=== PATIENT | female | born 1995 ===

== ENCOUNTER 2018-07-06 09:00 | Outpatient (RCR) | payer BC ==
[2018-07-02 15:00] VITALS: BP 145/96
--- NOTE | 2018-07-02 18:30 | ONCOLOGY CONSULTATION ---
EVENT DATE: July 02, [address] Nye REASON FOR CONSULTATION Evaluation and management of possible hypercoagulable state in a patient planned to be put on oral contraceptive pills. HEMATOLOGY HISTORY Patient is a 22-year-old female who is planned to have maybe estrogenic oral contraceptive pills, and the patient gave a history of blood clotting in her mother who had in the past a DVT and later she developed also pulmonary embolism. Patient has been followed by Dr. 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 She was also found to have high plasminogen activator inhibitor 1 at 38.2 international units/mL and the normal is less than 25. Patient did not have any history of blood clotting in the past. PAST MEDICAL HISTORY Insignificant. PAST SURGICAL HISTORY Tonsillectomy and adenoidectomy as a child. FAMILY HISTORY Mother had venous thromboembolism. SOCIAL HISTORY Patient is single with no children. 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 She drinks occasionally. Denies any abuse of tobacco or illicit drugs. CURRENT MEDICATIONS 1. Nasonex 17 g per day. 2. Claritin D one tablet daily as needed. 3. Jencycla 0.35 mg tablet orally daily. ALLERGIES No known drug allergies. REVIEW OF SYSTEMS CONSTITUTIONAL: No appetite or weight change. No fever, chills or sweating. No recent infection. HEENT: Ears: No tinnitus or hearing problem. Nose: No nasal discharge or epistaxis. Throat: No sore throat or mouth ulcers. Eyes: No diplopia or visual changes. RESPIRATORY: No shortness of breath. No cough, expectoration or hemoptysis. CARDIOVASCULAR: No chest pain, orthopnea, or paroxysmal nocturnal dyspnea (PND). No edema. No palpitations. GASTROINTESTINAL: No nausea or vomiting. No diarrhea or constipation. No change in bowel movements. No heartburn or swallowing difficulties. No abdominal pain. No jaundice. No hematemesis, melena or rectal bleeding. GENITOURINARY: No hematuria or dysuria. MUSCULOSKELETAL: No pain in the muscles, joints or bones. NEUROLOGICAL: No tingling or numbness in the hands or feet. No headaches or convulsions. HEMATOLOGIC/LYMPHATIC: No bleeding or easy bruising. No weakness or fatigue. No enlarged lymph nodes. SKIN: No skin rash or lumps. PSYCHIATRIC: No anxiety or depression. PHYSICAL EXAMINATION GENERAL: Looks stable. Well-developed, well-nourished, and in no acute distress. VITAL SIGNS: Blood pressure 146/96, pulse 113 per minute, respirations 16 per minute, temperature 98.6, pulse ox 95% on room air. HEENT: Head: Atraumatic. No sinus tenderness to palpation. Eyes: No icterus or conjunctivitis. Mouth and Throat: No oral thrush or mucositis. NECK: Supple. No cervical or supraclavicular lymphadenopathy. LUNGS: Clear to auscultation and percussion bilaterally. HEART: Regular rate and rhythm. No gallops, murmurs, clicks or rubs. ABDOMEN: Soft and lax. No tenderness. No hepatosplenomegaly. No masses. EXTREMITIES: No cyanosis, clubbing or edema. LYMPHATICS: No peripheral lymphadenopathy. NEUROLOGICAL: Conscious, alert and oriented times three. No focal motor or sensory deficits. PSYCHIATRIC: Mood and affect appear normal. SKIN: No skin rash, bruise or purpuric eruption. 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 Her mother had a history of venous thromboembolism in the past. Given this information, patient did not have a fasting homocysteine level and I am planning to check the homocysteine level to see if it is high or normal. Regarding the affect of estrogen on plasminogen activator inhibitor, there was a trial done and they found that oral estrogen therapy reduced the statistically significantly plasminogen activator 1 inhibitor level compared with transdermal methods of administration, and this change is beneficial from the view of cardiovascular risk, by decreasing the risk of blood clotting of course. Regarding the affect of estrogen also on homocysteine, they found that homocysteine plasma levels are not affected after three months of oral hormone replacement therapy regardless of the status of the methylenetetrahydrofolate reductase mutation. So it seems that estrogenic compounds may be beneficial in this type of hypercoagulable state. I am planning to check her fasting homocysteine level. I will see her in a week to discuss the result, and the patient will be released to start her contraceptive pills. PLAN 1. Check fasting homocysteine level. 2. Patient to return in one week for further evaluation and management. 3. Patient to contact us for any new concern or complaints. MTDD
[~2018-07-06 09:00] MED LIST: LORA1TAB69 PO; MOMR ENA; NORE0.353 PO
[2018-07-06 09:15] VITALS: BP 139/82
[2018-07-09 16:04] VITALS: BP 149/85
--- NOTE | 2018-07-09 16:19 | EKG ---
FACILITY: [facility] [place] PATIENT NAME: BEA SAMANIEGO : [id number] MR: [id number] V: [id number] EXAM DATE: ORDERING PHYSICIAN: LYNDSEY PRITCHETT TECHNOLOGIST: Test Reason : tachycardia Blood Pressure : / mmHG Vent. Rate : 114 BPM Atrial Rate : 114 BPM P-R Int : 142 ms QRS Dur : 072 ms QT Int : 302 ms P-R-T Axes : 070 079 070 degrees QTc Int : 416 ms Sinus tachycardia Otherwise normal ECG No previous ECGs available Confirmed by YEIMY URIARTE ([id number]) on 07/09/2018 6:58:19 PM Referred By: Confirmed By:YEIMY URIARTE
--- NOTE | 2018-07-09 18:32 | ONCOLOGY FOLLOW UP NOTE ---
EVENT DATE: July 09, 2018 DIAGNOSES 1. Hypercoagulable state without venous thromboembolus. 2. 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 3. High plasminogen activator inhibitor 1 at 38.2. CHIEF COMPLAINT The patient is here today for followup of her hypercoagulable state. HEMATOLOGY HISTORY Patient is a 22-year-old female who is planned to have maybe estrogenic oral contraceptive pills, and the patient gave a history of blood clotting in her mother who had in the past a DVT and later she developed also pulmonary embolism. Patient has been followed by Dr. 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 She was also found to have high plasminogen activator inhibitor 1 at 38.2 international units/mL and the normal is less than 25. Patient did not have any history of blood clotting in the past. Homocysteine level came back normal at 9. PAST MEDICAL HISTORY Insignificant. PAST SURGICAL HISTORY Tonsillectomy and adenoidectomy as a child. FAMILY HISTORY Mother had venous thromboembolism. SOCIAL HISTORY Patient is single with no children. 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 Denies any abuse of tobacco or illicit drugs. CURRENT MEDICATIONS 1. Nasonex 17 g per day. 2. Claritin D one tablet daily as needed. 3. Jencycla 0.35 mg tablet orally daily. ALLERGIES No known drug allergies. REVIEW OF SYSTEMS Deferred. PHYSICAL EXAMINATION Deferred. DIAGNOSTIC DATA Fasting homocysteine level is normal at 9. ASSESSMENT 1. 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 Her mother had venous thromboembolism in the past and she has protein S deficiency. Estrogen actually has a beneficial affect on plasminogen activator inhibitor 1. There was a trial done and they found that the estrogen therapy reduced statistically significantly plasminogen activator 1 inhibitor level compared with the transdermal methods of administration and this change is beneficial from the view of cardiovascular risk by decreasing the risk of blood clotting. Her homocysteine level currently is normal and the estrogen does not affect the level of the homocysteine level after three months of oral hormone replacement therapy regardless of the status of the methylenetetrahydrofolate reductase mutation. For this reason, estrogenic compounds I do not see any draw back effects on her hypercoagulable state with methylenetetrahydrofolate reductase mutation and high plasminogen activator inhibitor 1. But the patient is aware that estrogen by itself can increase the risk of thromboembolism by about 4-5 fold, even without hypercoagulable state. I handed her a brochure of the trials which I talked about regarding the effect of estrogen on the plasminogen activator inhibitor 1 and the homocysteine level, for the patient to give to her dining services manager to decide about her contraceptive method. 2. Sinus tachycardia. Patient when she came to the office she had tachycardia and EKG showed sinus tachycardia at 114 heart beats per minute, and on asking the patient, she is taking Claritin on a daily basis, and the Claritin can raise the heart in less than 2%, most probably due to its anticholinergic effect. Patient was advised to see her primary care for that. PLAN 1. Patient to return on a p.r.n. basis. 2. I do not see increasing the risk of thrombosis by adding oral contraceptive pills to her hypercoagulable state, but estrogen by itself can increase the risk of venous thromboembolism by 4-5 fold, even without hypercoagulable state and the patient is aware of that. 3. Patient to contact us for any new concerns or complaints. SARITHA
== END 2018-08-18 09:11 | disposition home or self-care (01) ==
LOC: SPU 09:00
PROVIDERS: ATTEND Internal Medicine Hematology
DX: E72.12 Methylenetetrahydrofolate reductase deficiency (principal); Z86.718 Personal history of other venous thrombosis and embolism; Z79.899 Other long term (current) drug therapy
CPT/HCPCS: 36415; 83090; 93005; 99202; 99212